=== PATIENT | female | born 1930 | race Caucasian/White ===

== ENCOUNTER 2017-01-12 05:06 | Emergency (ER) | payer MEDICARE, OTHER ==
[2017-01-12 06:51] LABS: BASOPHILS 0.1 % (0-2); EOSINOPHILS 0.3 % (0-7); HEMATOCRIT 47.1 % (36.0-48.0); HEMOGLOBIN 15.8 g/dL (12-16); IMMATURE GRANULOCYTES 0.2 % (0-5); LYMPHOCYTES 10.2 % (15-50); MCH 29.8 pg (26.0-34.0); MCHC 33.5 g/dL (31.0-37.0); MCV 88.7 fL (80.0-100.0); MEAN PLATELET VOLUME 9.9 fL (7.4-10.4); MONOCYTES 6.9 % (2-11); NEUTROPHILS 82.3 % (40-80); PLATELET COUNT 295 10x3/uL (130-400); RBC 5.31 10x6/uL (4.00-5.40); RDW 14.4 % (11.5-14.5); WBC 12.2 10x3/uL (4.8-10.8)
[2017-01-12 07:29] LABS: ALBUMIN 2.9 g/dL (3.4-5.0); ANION GAP 13.5 mmol/L (8-16); BILIRUBIN - TOTAL 0.85 mg/dL (0.2-1.3); CARBON DIOXIDE 25.6 mmol/L (21.0-32.0); CREATININE - SERUM 1.1 mg/dL (0.6-1.3); POTASSIUM - SERUM 5.1 mmol/L (3.5-5.1)
[2017-01-12 07:52] LABS: APPEARANCE HAZY (CLEAR); BACTERIA MANY /hpf (NONE SEEN); BILIRUBIN NEGATIVE (NEGATIVE); COLOR YELLOW (YELLOW); EPITHELIAL CELLS 0-5 /hpf (0-5); GLUCOSE NEGATIVE (NEGATIVE); GRANULAR CAST RARE /lpf (NONE SEEN); HYALINE CAST 0-5 /lpf (NONE SEEN); KETONE NEGATIVE (NEGATIVE); MUCUS <1+ /lpf (NONE SEEN); NITRITE NEGATIVE (NEGATIVE); PROTEIN NEGATIVE (NEGATIVE); RED CELLS - URINE RARE /hpf (0-5); SPECIFIC GRAVITY 1.015 (1.005-1.020); WAXY CAST RARE /lpf (NONE SEEN)
== END 2017-01-12 08:36 | disposition home or self-care (01) ==
LOC: D.ER 05:06
PROVIDERS: Emergency Medicine
DX: R55 Syncope and collapse (principal); W19.XXXA Unspecified fall, initial encounter; Y93.89 Activity, other specified; Y92.121 Bathroom in nursing home as the place of occurrence of the external cause; I10 Essential (primary) hypertension; B19.20 Unspecified viral hepatitis C without hepatic coma; Z94.4 Liver transplant status

== ENCOUNTER 2018-01-25 09:48 | Inpatient (IN) | payer MEDICARE, OTHER ==
[~2018-01-25] VITALS: Ht 154.9 cm; Wt 47.7 kg
--- NOTE | ~2018-01-25 | PN ---
PATIENT:MEME MARKHAM MEDICAL RECORD: [id number] LOCATION:[facility] ADMISSION DATE: 01/25/18 PROGRESS NOTE DATE OF SERVICE: 01/29/2018 SUBJECTIVE: The patient's case was discussed with staff. She has no new complaint. OBJECTIVE: The patient is in good behavioral control with limited insight about her condition. She does tolerate her medicines well. ASSESSMENT: No change in diagnoses. PLAN: Supportive and educational interventions were made. Long-term prognosis is guarded. TRANSINT:[id number] Voice Confirmation ID: [id number] DOCUMENT ID: [id number] PATRICIA LEGGETT MD at 1556 CC: [id number] DICTATION DATE: 01/29/18 1309 ROLLER EMBOSSER: 01/29/18 1314 ADM IN [place] [address] [place] [address]
--- NOTE | ~2018-01-25 | PN ---
PATIENT:MEME MARKHAM MEDICAL RECORD: [id number] LOCATION:[facility] ADMISSION DATE: 01/25/18 PROGRESS NOTE DATE OF SERVICE: 01/30/2018 SUBJECTIVE: The patient's case was discussed with staff. She has no new complaint. OBJECTIVE: The patient is in good behavioral control, but has limited insight about her condition. She was agitated and received p.r.n. medication last night. ASSESSMENT: No change in diagnoses. PLAN: I have started the patient on a low-dose of Klonopin to assist with her agitation. She will be monitored for side effects associated with its use. TRANSINT:[id number] Voice Confirmation ID: [id number] DOCUMENT ID: [id number] PATRICIA LEGGETT MD at 1556 CC: [id number] DICTATION DATE: 01/30/18 1321 RELAY MOTORMAN: 01/30/18 1536 ADM IN [place] [id number] [place] [id number]
--- NOTE | ~2018-01-25 | PN ---
PATIENT:MEME MARKHAM MEDICAL RECORD: [id number] LOCATION:[facility] ADMISSION DATE: 01/25/18 PROGRESS NOTE DATE OF SERVICE: 02/04/2018 SUBJECTIVE: The patient's case was discussed with staff. She has no new complaint. OBJECTIVE: The patient denies intent to harm herself. She did not sleep well last night, but she is dehydrated and currently receiving intravenous fluids. ASSESSMENT: No change in diagnoses. PLAN: The patient's long-term prognosis is exceedingly poor despite almost superhuman efforts. The staff is not able to get enough food or water into her to maintain homeostasis. I think that it is nearing the point where serious discussion about hospice needs to be undertaken with her . TRANSINT:[id number] Voice Confirmation ID: [id number] DOCUMENT ID: [id number] PATRICIA LEGGETT MD at 1309 CC: [id number] DICTATION DATE: 02/04/18 1338 JUNIOR SYSTEMS ADMINISTRATOR: 02/04/18 1556 ADM IN [place] [id number] [place] [address]
--- NOTE | ~2018-01-25 | PN ---
PATIENT:MEME MARKHAM MEDICAL RECORD: [id number] LOCATION:[facility] ADMISSION DATE: 01/25/18 PROGRESS NOTE DATE OF SERVICE: 02/08/2018 SUBJECTIVE: The patient's case was discussed with staff. She has no new complaint. OBJECTIVE: The patient denies intent to harm herself or others. She is very disorganized and only oriented to person. She continues to not eat or drink. She is not interacting with me in any significant or meaningful way. She had a BUN and creatinine of 68 and 1.7 yesterday. ASSESSMENT: No change in diagnoses. PLAN: The patient is going to be discharged to the [address] under the care of [facility] today. Her long-term prognosis is guarded. Supportive and educational interventions were attempted with little result. TRANSINT:[id number] Voice Confirmation ID: [id number] DOCUMENT ID: [id number] PATRICIA LEGGETT MD at 1058 CC: [id number] DICTATION DATE: 02/08/18 1440 RUBBER ROLLER GRINDER: 02/08/18 1632 DIS IN 02/08/18 [place] [id number] [place] [id number]
--- NOTE | ~2018-01-25 | PN ---
PATIENT:MEME MARKHAM MEDICAL RECORD: [id number] LOCATION:[facility] ADMISSION DATE: 01/25/18 PROGRESS NOTE DATE OF SERVICE: 02/07/2018 SUBJECTIVE: The patient's case was discussed with staff. She has no new complaint. OBJECTIVE: The patient denies intent to harm herself or others. She is still not eating adequately. She has very limited insight about her condition and is once again receiving IV hydration. ASSESSMENT: No change in diagnoses. PLAN: This patient's prognosis is unfortunately exceedingly poor. She is going to require comfort care or hospice measures if things cannot be reversed, which I am not optimistic they can. TRANSINT:[id number] Voice Confirmation ID: [id number] DOCUMENT ID: [id number] PATRICIA LEGGETT MD at 0932 CC: [id number] DICTATION DATE: 02/07/18 1632 STOCK MOVER: 02/07/18 1724 ADM IN [facility] [address] [place] [address]
--- NOTE | ~2018-01-25 | PN ---
PATIENT:MEME MARKHAM MEDICAL RECORD: [id number] LOCATION:[facility] ADMISSION DATE: 01/25/18 PROGRESS NOTE DATE OF SERVICE: 02/05/2018 SUBJECTIVE: The patient's case was discussed with staff. She has no new complaint. OBJECTIVE: The patient pulled her IV out, but she was close to having received what was going to be ordered. She is quite confused. She actually looks a little more energetic now that she has been hydrated, but I think this is just a temporary solution to a longstanding problem. She still has a BUN of 54 today and is not taking adequate fluids. I do think it is time a serious discussion about comfort care measures took place with the family and the initial phase of that will be to discuss it with the treatment team on Wednesday. TRANSINT:[id number] Voice Confirmation ID: [id number] DOCUMENT ID: [id number] PATRICIA LEGGETT MD at 1050 CC: [id number] DICTATION DATE: 02/05/18 1327 MULTIMEDIA SPECIALIST: 02/05/18 1351 ADM IN [facility] [address] [place] [address]
--- NOTE | ~2018-01-25 | DS ---
PATIENT:MEME MARKHAM :[birth year] MEDICAL RECORD: [id number] DISCHARGE SUMMARY ADMISSION DATE: 01/25/18 DISCHARGE DATE: 02/08/18 IDENTIFYING DATA: The patient is 87 years old and she was admitted to the hospital secondary to confusion and agitation. The patient lives in an assisted living center where she has been with her . Unfortunately, her was recently hospitalized for reasons I am not sure about, but after he left her, she became quite disorganized, agitated and unmanageable. She was wandering, confused and combative with the staff. This may have been coincidental or only partially related to his absence, but the behaviors and situation certainly merit inpatient evaluation. The patient was subsequently admitted to the hospital and evaluated. HOSPITAL COURSE: The patient was found to have an advanced dementia along with a urinary tract infection. She was clearly very advanced with her dementia, was treated with mood stabilizing and memory enhancing medications with very minimal results. She would not eat, she would not drink despite almost superhuman efforts on the part of the nursing staff with their patience and effort to try to feed her and provide her with adequate fluid. She did require several rounds of intravenous fluids, but still was not eating adequately or drinking adequately. The apparently was transferred to inpatient hospice and is not expected to live very long. The family in consultation with the treatment team decided that Mrs. Markham should also go to hospice and she was subsequently transferred to an outpatient setting with hospice care. DISCHARGE DIAGNOSES: AXIS I: Senile dementia of the Alzheimer's type with behavioral disturbances. AXIS II: None. AXIS III: Status post liver transplant, status post ovarian cancer, hypertension and urinary tract infection. AXIS IV: Moderate stressors. AXIS V: Global assessment of functioning is 15. PLAN: At this time, the patient's prognosis is exceedingly poor. She is not combative or disruptive in any significant way. Comfort care measures are going to be provided and it is unlikely that she is going to survive very long. TRANSINT:[id number] Voice Confirmation ID: [id number] DOCUMENT ID: [id number] PATRICIA LEGGETT MD at 1730 CC: [id number] DICTATION DATE: 02/10/18917 CLASSIFIER: 02/10/182203 DIS IN 02/08/18 [facility] [address] [place] [address]
--- NOTE | ~2018-01-25 | PN ---
PATIENT:MEME MARKHAM MEDICAL RECORD: [id number] LOCATION:[facility] ADMISSION DATE: 01/25/18 PROGRESS NOTE DATE OF SERVICE: 02/01/2018 SUBJECTIVE: The patient's case was discussed with staff. She has no new complaint. OBJECTIVE: The patient did not eat well last night. She is receiving Megace to assist with appetite stimulation. She has very limited insight about her situation and is severely impaired cognitively. ASSESSMENT: No change in diagnoses. PLAN: The patient's dementia is advanced. I believe this is the reason for not eating. Efforts are being made to encourage her to eat. She is also taking an appetite stimulant. If those efforts are not successful, obviously her prognosis is exceedingly poor. TRANSINT:[id number] Voice Confirmation ID: [id number] DOCUMENT ID: [id number] PATRICIA LEGGETT MD at 1133 CC: [id number] DICTATION DATE: 02/01/18 1529 MACHINE WOOD SANDER: 02/01/182011 ADM IN [facility] [address] [place] [address]
--- NOTE | ~2018-01-25 | PN ---
PATIENT:MEME MARKHAM MEDICAL RECORD: [id number] LOCATION:[facility] ADMISSION DATE: 01/25/18 PROGRESS NOTE DATE OF SERVICE: 01/27/2018 SUBJECTIVE: The patient's case was discussed with staff. She has no new complaint. OBJECTIVE: The patient is in good behavioral control with limited insight about her condition. She does tolerate her medicines well. ASSESSMENT: No change in diagnoses. PLAN: The patient is not eating well at all. I think this is an associated feature of her advanced dementia. I am going to prescribe Megace to assist with appetite stimulation. Her long-term prognosis is guarded and regardless of how effective I am at treating her disruptive behaviors, it is not going to be of much value if I cannot maintain adequate nutrition and fluids in her. TRANSINT:[id number] Voice Confirmation ID: [id number] DOCUMENT ID: [id number] PATRICIA LEGGETT MD at 1627 CC: [id number] DICTATION DATE: 01/27/181718 COLLAR SEPARATOR: 01/27/18 2203 ADM IN [facility] [address] [place] [address]
--- NOTE | ~2018-01-25 | PSY ---
PATIENT NAME:MEME MARKHAM MEDICAL RECORD: [id number] : [birth year] LOCATION:[facility] ADMISSION DATE: 01/25/18 ACCOUNT: [id number] PSYCHIATRIC EVALUATION DATE OF EVALUATION: 01/26/18 IDENTIFYING DATA: The patient is 87 years old and she is admitted to the hospital on a voluntary basis. CHIEF COMPLAINT: Confusion and agitation. HISTORY OF PRESENT ILLNESS: The patient lives at [facility]. She has been living there with her who recently was hospitalized for reasons that I am not sure of. Since he went to the hospital, she has deteriorated. She has become confused, wandering and most severely combative with the staff at [facility]. They were unable to manage her. They request assistance. The patient is interviewed and is clearly severely confused. She has a known history of dementia and is clearly not cognitively intact. She is wondering about her , but cannot be reassured about him. She is convinced he is waiting for her and that she must get to him. She has no recollection for the aggressive events at [facility] that caused her to be hospitalized here. PAST MEDICAL HISTORY: Most significant for a liver transplant in 2016 secondary to hepatitis C. She also has a history of hypertension and ovarian cancer. PAST PSYCHIATRIC HISTORY: Significant for an established diagnosis of dementia, which is clearly advanced, but I do not know the circumstances or timing on that diagnosis. FAMILY HISTORY: Unknown. ALLERGIES: PENICILLIN and SULFA. CURRENT MEDICATIONS: Include Melatonin, Namenda, Accupril, Prograf, Ultram, and Farley. SOCIAL HISTORY: The patient is . She does have adult children who are involved with her care. She apparently has no history of drug or alcohol abuse and apparently functioned reasonably well socially and occupationally. MENTAL STATUS EXAMINATION: The patient is awake, alert and oriented to person, place and somewhat to time and situation. Her mood is flat. Her affect is constricted. Thought processes are circumstantial. Memory, concentration, and abstraction abilities are moderately impaired and she denies any current intent to harm herself or others as well as psychotic symptoms. ASSETS: Supportive family members. LIABILITIES: Limited insight. DIAGNOSTIC IMPRESSION: AXIS I: Senile dementia of the Alzheimer's type with behavioral disturbances. AXIS II: None. AXIS III: Status post liver transplant, status post ovarian cancer, and hypertension. AXIS IV: Moderate stressors. AXIS V: Global assessment of functioning is 25. PLAN: At this time, the patient is admitted to the hospital secondary to agitation associated with her advanced dementia. She will be treated with both mood stabilizing and memory enhancing medications as deemed appropriate. Her long-term prognosis is guarded. TRANSINT:[id number] Voice Confirmation ID: [id number] DOCUMENT ID: [id number] PATRICIA LEGGETT MD at 1613 CC: [id number] DICTATION DATE: 01/26/18 1231 RN CHRONIC: 01/26/18 1242 ADM IN [place] [id number] [place] [id number]
--- NOTE | ~2018-01-25 | PN ---
PATIENT:MEME MARKHAM MEDICAL RECORD: [id number] LOCATION:[facility] ADMISSION DATE: 01/25/18 PROGRESS NOTE DATE OF SERVICE: 02/03/2018 SUBJECTIVE: The patient's case was discussed with staff. She has no new complaint. OBJECTIVE: The patient denies intent to harm herself or others. She is very impaired cognitively. She is convinced that she is in residential. Efforts to redirect her from this are unsuccessful. ASSESSMENT: No change in diagnoses. PLAN: The patient's oral intake is poor. She has been given Megace to assist with this. I am going to give her some trazodone to assist with sleep consolidation. Her long-term prognosis is guarded. TRANSINT:[id number] Voice Confirmation ID: [id number] DOCUMENT ID: [id number] PATRICIA LEGGETT MD at 1327 CC: [id number] DICTATION DATE: 02/03/18 1042 LAWN SERVICE MANAGER: 02/03/18 1207 ADM IN [id number] [place] [address]
--- NOTE | ~2018-01-25 | PN ---
PATIENT:MEME MARKHAM MEDICAL RECORD: [id number] LOCATION:[facility] ADMISSION DATE: 01/25/18 PROGRESS NOTE DATE OF SERVICE: 02/06/2018 SUBJECTIVE: The patient's case was discussed with staff. She has no new complaint. OBJECTIVE: The patient is disorganized, but actually ate a fair amount of her breakfast this morning. Overall, she is eating slightly better, but still it is inconsistent and insufficient to maintain her well-being long-term. ASSESSMENT: No change in diagnoses. PLAN: Supportive and educational interventions were made. TRANSINT:[id number] Voice Confirmation ID: [id number] DOCUMENT ID: [id number] PATRICIA LEGGETT MD at 1551 CC: [id number] DICTATION DATE: 02/06/18 1201 CONSTRUCTION PROJECT MANAGER: 02/06/18 1224 ADM IN [place] [id number] [place] [address]
--- NOTE | ~2018-01-25 | PN ---
PATIENT:MEME MARKHAM MEDICAL RECORD: [id number] LOCATION:[facility] ADMISSION DATE: 01/25/18 PROGRESS NOTE DATE OF SERVICE: 02/02/2018 SUBJECTIVE: The patient's case was discussed with staff. She has no new complaint. OBJECTIVE: The patient is in good behavioral control with limited insight about her condition. She does tolerate her medicines well. ASSESSMENT: No change in diagnoses. PLAN: The patient's oral intake is poor. She is receiving Megace, but she is only eating about one-fourth of her meals. I think the explanation is that she is suffering from an advanced dementia and just simply is not taking in as much nutrition as she should. TRANSINT:[id number] Voice Confirmation ID: [id number] DOCUMENT ID: [id number] PATRICIA LEGGETT MD at 1021 CC: [id number] DICTATION DATE: 02/02/18 1219 GOLF TECHNICIAN: 02/02/18 1328 ADM IN [place] [address] [place] [address]
--- NOTE | ~2018-01-25 | PN ---
PATIENT:MEME MARKHAM MEDICAL RECORD: [id number] LOCATION:[facility] ADMISSION DATE: 01/25/18 PROGRESS NOTE DATE OF SERVICE: 01/31/2018 SUBJECTIVE: The patient's case was discussed with staff. She has no new complaint. OBJECTIVE: The patient has limited insight about her condition. She still is not eating very well, but she has only had a day or two of the Megace to assist her. She is much calmer, in fact she may even look a little sedated, so I am going to discontinue her Klonopin, but may started at a lower dose in a day or two. It is my understanding that her family, and/or children are going to place her in a mcc, which I am in strong agreement with. TRANSINT:[id number] Voice Confirmation ID: [id number] DOCUMENT ID: [id number] PATRICIA LEGGETT MD at 1042 CC: [id number] DICTATION DATE: 01/31/18 1643 IN STORE DEMONSTRATOR: 01/31/18 1758 ADM IN [facility] [address] [place] [address]
--- NOTE | ~2018-01-25 | PN ---
PATIENT:MEME MARKHAM MEDICAL RECORD: [id number] LOCATION:[facility] ADMISSION DATE: 01/25/18 PROGRESS NOTE DATE OF SERVICE: 01/28/2018 SUBJECTIVE: The patient's case was discussed with staff. She has no new complaint. OBJECTIVE: The patient is severely impaired cognitively and becomes easily distressed and agitated. ASSESSMENT: No change in diagnoses. PLAN: The patient is not eating and receiving Megace. She is sleeping adequately, but part of that is because she did have some p.r.n. medication last night. I am going to start her on Trilafon to assist with her thought disorganization. She will be monitored for clinical changes associated with its use. Her long-term prognosis is guarded. TRANSINT:[id number] Voice Confirmation ID: [id number] DOCUMENT ID: [id number] PATRICIA LEGGETT MD at 1249 CC: [id number] DICTATION DATE: 01/28/18 1649 ECOMMERCE MARKETING MANAGER: 01/28/18 1746 ADM IN [place] [address] [place] [address]
[2018-01-25] MEDS ORDERED: MELATONIN 3 MG1 TAB PO (09:54)
[2018-01-25] MEDS ORDERED: ACCUPRIL20 MG PO (09:55)
[2018-01-25] MEDS ORDERED: TACROLIMUS ANHYD1 MG PO ×2 (09:55)
[2018-01-25] MEDS ORDERED: NAMENDA XR28 MG PO (09:55)
[2018-01-25] MEDS ORDERED: ULTRAM50 MG PO (09:56)
[2018-01-25] MEDS ORDERED: HYDROCODON-ACE1 EAC7 PO (09:56)
[2018-01-25 10:38] LABS: UDS - AMPHET NEGATIVE QUAL (NEGATIVE); UDS - BARB NEGATIVE QUAL (NEGATIVE); UDS - BENZO NEGATIVE QUAL (NEGATIVE); UDS - COCAINE NEGATIVE QUAL (NEGATIVE); UDS - OPIATE NEGATIVE QUAL (NEGATIVE); UDS - PCP NEGATIVE QUAL (NEGATIVE); UDS - THC NEGATIVE QUAL (NEGATIVE)
[2018-01-25 10:49] LABS: BASOPHILS 0.4 % (0-2); EOSINOPHILS 0.6 % (0-7); HEMOGLOBIN 12.2 g/dL (12-16); IMMATURE GRANULOCYTES 0.1 % (0-5); LYMPHOCYTES 15.1 % (15-50); MCH 28.8 pg (26.0-34.0); MCV 87.5 fL (80.0-100.0); MEAN PLATELET VOLUME 10.2 fL (7.4-10.4); MONOCYTES 9.7 % (2-11); NEUTROPHILS 74.1 % (40-80); PLATELET COUNT 278 10x3/uL (130-400); RBC 4.23 10x6/uL (4.00-5.40); RDW 15.6 % (11.5-14.5)
[2018-01-25 11:06] LABS: ALBUMIN 2.9 g/dL (3.4-5.0); ANION GAP 12.8 mmol/L (8-16); BILIRUBIN - TOTAL 0.65 mg/dL (0.2-1.3); CALCIUM 8.7 mg/dL (8.5-10.1); CARBON DIOXIDE 25.9 mmol/L (21.0-32.0); CREATININE - SERUM 1.2 mg/dL (0.6-1.3); POTASSIUM - SERUM 4.7 mmol/L (3.5-5.1); PROTEIN - SERUM 6.7 g/dL (6.4-8.2)
[2018-01-25 11:14] LABS: APPEARANCE CLEAR (CLEAR); BILIRUBIN NEGATIVE (NEGATIVE); COLOR YELLOW (YELLOW); GLUCOSE NEGATIVE (NEGATIVE); KETONE NEGATIVE (NEGATIVE); NITRITE NEGATIVE (NEGATIVE); PROTEIN NEGATIVE (NEGATIVE); SPECIFIC GRAVITY 1.015 (1.005-1.020); UROBILINOGEN NORMAL (NORMAL); WHITE CELLS - URINE OCC /hpf (0-5)
[2018-01-25 11:15] LABS: BACTERIA FEW /hpf (NONE SEEN); EPITHELIAL CELLS OCC /hpf (0-5)
[2018-01-25 15:29] VITALS: BP 100/79; BMI 20.4
[2018-01-25 17:13] LABS: BASOPHILS 0.4 % (0-2); EOSINOPHILS 0.9 % (0-7); HEMATOCRIT 35.9 % (36.0-48.0); IMMATURE GRANULOCYTES 0.1 % (0-5); LYMPHOCYTES 22.5 % (15-50); MCH 28.8 pg (26.0-34.0); MCHC 33.4 g/dL (31.0-37.0); MCV 86.3 fL (80.0-100.0); MEAN PLATELET VOLUME 10.1 fL (7.4-10.4); MONOCYTES 10.8 % (2-11); NEUTROPHILS 65.3 % (40-80); PLATELET COUNT 284 10x3/uL (130-400); RBC 4.16 10x6/uL (4.00-5.40); RDW 15.5 % (11.5-14.5); WBC 6.8 10x3/uL (4.8-10.8)
[2018-01-25 18:26] LABS: ANION GAP 16.1 mmol/L (8-16); BILIRUBIN - TOTAL 0.48 mg/dL (0.2-1.3); CALCIUM 8.9 mg/dL (8.5-10.1); CARBON DIOXIDE 22.5 mmol/L (21.0-32.0); CHOL - HDL RATIO 2.4 ratio (2.3-4.1); CREATININE - SERUM 1.3 mg/dL (0.6-1.3); LDL-HDL RATIO 1.2 ratio (1.5-3.5); POTASSIUM - SERUM 4.6 mmol/L (3.5-5.1); PROTEIN - SERUM 6.9 g/dL (6.4-8.2); THYROID STIMULATING HORMONE 0.72 uIU/mL (0.36-3.74)
[2018-01-25 19:51] VITALS: BP 99/59
[2018-01-26 08:04] VITALS: BP 134/80
[2018-01-26 09:14] VITALS: BMI 20.3
[2018-01-26 09:31] VITALS: BMI 20.4
[2018-01-26 20:04] VITALS: BP 94/45
[2018-01-27 09:13] VITALS: BP 140/73
[2018-01-27 20:49] VITALS: BP 113/62
[2018-01-28 20:29] VITALS: BP 170/100
[2018-01-29 08:00] VITALS: BP 108/61
[2018-01-29 20:23] VITALS: BP 145/78
[2018-01-30 08:00] VITALS: BP 139/82
[2018-01-30 20:20] VITALS: BP 150/89
[2018-01-31 09:28] VITALS: BP 142/76
[2018-01-31 19:33] VITALS: BP 143/76
[2018-02-01 09:37] VITALS: BP 122/62
[2018-02-01 14:33] LABS: BASOPHILS 0.1 % (0-2); EOSINOPHILS 0.1 % (0-7); HEMATOCRIT 39.3 % (36.0-48.0); IMMATURE GRANULOCYTES 0.2 % (0-5); LYMPHOCYTES 10.6 % (15-50); MCHC 33.1 g/dL (31.0-37.0); MCV 87.7 fL (80.0-100.0); MEAN PLATELET VOLUME 10.6 fL (7.4-10.4); MONOCYTES 7.5 % (2-11); NEUTROPHILS 81.5 % (40-80); RBC 4.48 10x6/uL (4.00-5.40); RDW 15.5 % (11.5-14.5); WBC 11.5 10x3/uL (4.8-10.8)
[2018-02-01 14:38] LABS: PLATELET COUNT 227 10x3/uL (130-400)
[2018-02-01 14:44] LABS: ALBUMIN 2.5 g/dL (3.4-5.0); ANION GAP 18.6 mmol/L (8-16); BILIRUBIN - TOTAL 0.84 mg/dL (0.2-1.3); CALCIUM 9.3 mg/dL (8.5-10.1); CARBON DIOXIDE 22.4 mmol/L (21.0-32.0); CREATININE - SERUM 1.7 mg/dL (0.6-1.3); PROTEIN - SERUM 7.2 g/dL (6.4-8.2)
[2018-02-01 16:38] VITALS: BP 140/78; Ht 154.9 cm; Wt 47.7 kg
[2018-02-01 20:00] VITALS: BP 134/74
[2018-02-02 10:24] VITALS: BP 121/65
[2018-02-02 19:41] VITALS: BP 94/50
[2018-02-03 07:58] LABS: BASOPHILS 0.1 % (0-2); EOSINOPHILS 0.2 % (0-7); HEMATOCRIT 38.2 % (36.0-48.0); HEMOGLOBIN 12.6 g/dL (12-16); IMMATURE GRANULOCYTES 0.2 % (0-5); LYMPHOCYTES 18.5 % (15-50); MCH 28.6 pg (26.0-34.0); MCV 86.8 fL (80.0-100.0); MEAN PLATELET VOLUME 9.9 fL (7.4-10.4); MONOCYTES 10.1 % (2-11); NEUTROPHILS 70.9 % (40-80); RDW 15.4 % (11.5-14.5); WBC 8.8 10x3/uL (4.8-10.8)
[2018-02-03 08:07] LABS: PLATELET COUNT 293 10x3/uL (130-400)
[2018-02-03 08:18] LABS: ANION GAP 12.3 mmol/L (8-16); CALCIUM 9.7 mg/dL (8.5-10.1); CREATININE - SERUM 1.6 mg/dL (0.6-1.3); POTASSIUM - SERUM 4.5 mmol/L (3.5-5.1)
[2018-02-03 08:21] LABS: CARBON DIOXIDE 30.2 mmol/L (21.0-32.0)
[2018-02-03 08:51] VITALS: BP 123/62
[2018-02-03 19:14] VITALS: BP 128/81
[2018-02-04 06:53] LABS: BASOPHILS 0.1 % (0-2); EOSINOPHILS 0.5 % (0-7); HEMATOCRIT 37.8 % (36.0-48.0); HEMOGLOBIN 12.7 g/dL (12-16); IMMATURE GRANULOCYTES 0.2 % (0-5); LYMPHOCYTES 22.5 % (15-50); MCH 28.5 pg (26.0-34.0); MCHC 33.6 g/dL (31.0-37.0); MCV 84.9 fL (80.0-100.0); MEAN PLATELET VOLUME 10.3 fL (7.4-10.4); MONOCYTES 9.9 % (2-11); NEUTROPHILS 66.8 % (40-80); PLATELET COUNT 294 10x3/uL (130-400); RBC 4.45 10x6/uL (4.00-5.40); RDW 15.3 % (11.5-14.5); WBC 8.3 10x3/uL (4.8-10.8)
[2018-02-04 07:13] LABS: ALBUMIN 2.2 g/dL (3.4-5.0); ANION GAP 11.2 mmol/L (8-16); BILIRUBIN - TOTAL 0.28 mg/dL (0.2-1.3); CARBON DIOXIDE 27.6 mmol/L (21.0-32.0); CREATININE - SERUM 1.5 mg/dL (0.6-1.3); POTASSIUM - SERUM 4.8 mmol/L (3.5-5.1); PROTEIN - SERUM 6.5 g/dL (6.4-8.2)
[2018-02-04 08:04] VITALS: BP 125/880
[2018-02-04 20:04] VITALS: BP 120/70
[2018-02-05 06:28] LABS: BASOPHILS 0.1 % (0-2); EOSINOPHILS 0.4 % (0-7); HEMATOCRIT 33.6 % (36.0-48.0); HEMOGLOBIN 11.3 g/dL (12-16); IMMATURE GRANULOCYTES 0.3 % (0-5); LYMPHOCYTES 24.6 % (15-50); MCH 28.3 pg (26.0-34.0); MCHC 33.6 g/dL (31.0-37.0); MEAN PLATELET VOLUME 9.9 fL (7.4-10.4); NEUTROPHILS 64.6 % (40-80); PLATELET COUNT 265 10x3/uL (130-400); RDW 15.3 % (11.5-14.5); WBC 7.1 10x3/uL (4.8-10.8)
[2018-02-05 06:43] LABS: ANION GAP 12.6 mmol/L (8-16); BILIRUBIN - TOTAL 0.32 mg/dL (0.2-1.3); CALCIUM 8.7 mg/dL (8.5-10.1); CARBON DIOXIDE 23.9 mmol/L (21.0-32.0); CREATININE - SERUM 1.3 mg/dL (0.6-1.3); POTASSIUM - SERUM 4.5 mmol/L (3.5-5.1); PROTEIN - SERUM 5.8 g/dL (6.4-8.2)
[2018-02-05 10:18] VITALS: BP 126/75
[2018-02-05 21:22] VITALS: BP 120/69
[2018-02-06 08:52] VITALS: BP 132/78
[2018-02-06 20:00] VITALS: BP 92/53
[2018-02-07 07:45] LABS: ALBUMIN 2.3 g/dL (3.4-5.0); ANION GAP 12.1 mmol/L (8-16); BILIRUBIN - TOTAL 0.28 mg/dL (0.2-1.3); CALCIUM 8.7 mg/dL (8.5-10.1); CARBON DIOXIDE 27.5 mmol/L (21.0-32.0); CREATININE - SERUM 1.7 mg/dL (0.6-1.3); POTASSIUM - SERUM 4.6 mmol/L (3.5-5.1); PROTEIN - SERUM 6.4 g/dL (6.4-8.2)
[2018-02-07 08:00] VITALS: BP 128/71
[2018-02-07 19:53] VITALS: BP 112/52
[2018-02-08 08:00] VITALS: BP 152/80
[2018-02-08 08:35] LABS: APPEARANCE CLEAR (CLEAR); COLOR YELLOW (YELLOW)
[2018-02-08 08:36] LABS: BILIRUBIN NEGATIVE (NEGATIVE); GLUCOSE NEGATIVE (NEGATIVE); KETONE NEGATIVE (NEGATIVE); NITRITE NEGATIVE (NEGATIVE); PROTEIN NEGATIVE (NEGATIVE); SPECIFIC GRAVITY 1.005 (1.005-1.020)
[2018-02-08] MEDS ORDERED: DESERYL50 M2 PO (14:42)
[2018-02-08] MEDS ORDERED: FLORAJEN3 CAPS460 MG PO (14:42)
[2018-02-08] MEDS ORDERED: PERPHENAZINE2 MG PO (14:42)
[2018-02-08] MEDS ORDERED: MEGACE ES625 MG/5 M PO (14:43)
[2018-02-08] MEDS ORDERED: SENNA8.6 MG PO (14:43)
[2018-02-08] MEDS ORDERED: PROTONIX40 MG PO (14:43)
[2018-02-08] MEDS ORDERED: VITAMIN D5000 UNIT PO (14:43)
== END 2018-02-08 19:57 | disposition home health service (06) | DRG 57 ==
LOC: D.ER 09:48 → D.PSYCH 12:21
PROVIDERS: Family Medicine; Psychiatry & Neurology Psychiatry
DX: G30.1 Alzheimer's disease with late onset (principal); F02.81 Dementia in other diseases classified elsewhere, unspecified severity, with behavioral disturbance; Z94.4 Liver transplant status; I10 Essential (primary) hypertension; G47.00 Insomnia, unspecified; R26.9 Unspecified abnormalities of gait and mobility; K29.70 Gastritis, unspecified, without bleeding; E55.9 Vitamin D deficiency, unspecified; R63.0 Anorexia; Z68.20 Body mass index [BMI] 20.0-20.9, adult; E86.0 Dehydration; K59.00 Constipation, unspecified; D72.829 Elevated white blood cell count, unspecified; Z85.43 Personal history of malignant neoplasm of ovary